=== PATIENT | female | born 1960 | race Caucasian/White ===

== ENCOUNTER → 2018-03-18 | Outpatient (REF) | payer MEDICAID ==
[2018-03-18 17:37] LABS: BASO # 0.1 10^3/uL (0.0-0.2); BASO % 0.9 % (0.0-1.0); EOS # 0.2 10^3/uL (0.0-0.50); EOS % 4.1 % (0.0-3.0); HEMATOCRIT 37.6 % (36.0-47.0); HEMOGLOBIN 12.7 g/dl (12.0-15.5); IMMATURE GRANULOCYTE % 0.2 % (0-3.0); LYMPH # 2.2 10^3/uL (1.5-4.5); LYMPH % 38.6 % (24.0-44.0); MEAN CORPUSCULAR HEMOGLOBIN 29.7 pg (27.0-33.0); MEAN CORPUSCULAR HGB CONC 33.8 g/dl (32.0-36.5); MEAN CORPUSCULAR VOLUME 87.9 fl (80.0-96.0); MONO # 0.3 10^3/uL (0.0-0.8); MONO % 5.9 % (0.0-5.0); NEUTROPHILS # 2.8 10^3/uL (1.8-7.7); NEUTROPHILS % 50.3 % (36.0-66.0); PLATELET COUNT, AUTOMATED 229 10^3/uL (150-450); RED BLOOD COUNT 4.28 10^6/uL (4.00-5.40); RED CELL DISTRIBUTION WIDTH 13.4 % (11.5-14.5); WHITE BLOOD COUNT 5.6 10^3/uL (4.0-10.0)
[2018-03-18 18:37] LABS: ALBUMIN 3.4 GM/DL (3.2-5.2); ALBUMIN/GLOBULIN RATIO 1.13 (1.00-1.93); ALKALINE PHOSPHATASE 69 U/L (45-117); ALT/SGPT 20 U/L (12-78); ANION GAP 6 MEQ/L (8-16); AST/SGOT 11 U/L (7-37); BILIRUBIN,TOTAL 1.3 MG/DL (0.2-1.0); BLOOD UREA NITROGEN 14 MG/DL (7-18); CALCIUM LEVEL 8.7 MG/DL (8.8-10.2); CARBON DIOXIDE LEVEL 28 MEQ/L (21-32); CHLORIDE LEVEL 107 MEQ/L (98-107); CHOLESTEROL LEVEL 184 MG/DL (<200); CHOLESTEROL RISK RATIO 4.279 (<5); CREATININE FOR GFR 0.73 MG/DL (0.55-1.30); GLOMERULAR FILTRATION RATE > 60.0 (>45); GLUCOSE, FASTING 120 MG/DL (70-100); HDL CHOLESTEROL 43 MG/DL (>40); NON-HDL-C 141 MG/DL; POTASSIUM SERUM 4.1 MEQ/L (3.5-5.1); SODIUM LEVEL 141 MEQ/L (136-145); TOTAL PROTEIN 6.4 GM/DL (6.4-8.2); TRIGLYCERIDES LEVEL 255 MG/DL (<150)
[2018-03-18 18:47] LABS: CREATININE, URINE 67.7 MG/DL; MALB URINE SIEMENS < 5.0 MG/L; MAU/CREAT RATIO 7.3 MCG/MG (0.0-30.0)
[2018-03-18 19:09] LABS: ESTIMATED AVERAGE GLUCOSE 111 MG/DL (60-110); HEMOGLOBIN A1c 5.5 %
== END ==
LOC: M SFHCCAPE 06:57
DX: E11.69 Type 2 diabetes mellitus with other specified complication (principal)
CPT/HCPCS: 84443

== ENCOUNTER 2018-04-30 10:17 | Day surgery (SDC) | payer OTHER, MEDICAID ==
[2018-04-30] MEDS: NS 1,000 ML IV (06:00)
[2018-04-30] MEDS ORDERED: PROPOFOL 200 MG/20 ML VIAL As Ordered (11:03)
[2018-04-30] MEDS ORDERED: LIDOCAINE 2% INJ 100 MG/5 ML SDV (FOR ANES.) As Ordered (11:03)
== END 2018-04-30 12:21 | disposition home or self-care (01) ==
LOC: M OPP 10:17
DX: Z12.11 Encounter for screening for malignant neoplasm of colon (principal); D12.7 Benign neoplasm of rectosigmoid junction; D12.2 Benign neoplasm of ascending colon; K57.30 Diverticulosis of large intestine without perforation or abscess without bleeding; Z95.5 Presence of coronary angioplasty implant and graft; I48.91 Unspecified atrial fibrillation; I25.10 Atherosclerotic heart disease of native coronary artery without angina pectoris; I25.2 Old myocardial infarction; I10 Essential (primary) hypertension; E11.9 Type 2 diabetes mellitus without complications; R32 Unspecified urinary incontinence; E66.9 Obesity, unspecified; Z79.82 Long term (current) use of aspirin; Z79.899 Other long term (current) drug therapy; Z79.01 Long term (current) use of anticoagulants; Z79.84 Long term (current) use of oral hypoglycemic drugs
CPT/HCPCS: 45385

== ENCOUNTER → 2018-12-23 | Outpatient (REF) | payer MEDICAID ==
[~2018-12-23] MED LIST: ASPI-222 PO; CART120C PO; D 50CAP PO; DITR5TAB PO; MAGN250T7 PO; METF500T13 PO; METO1TAB33 PO; RANI1TAB6 PO
[2018-12-23 18:01] LABS: BASO # 0.1 10^3/uL (0.0-0.2); BASO % 0.7 % (0.0-1.0); EOS # 0.3 10^3/uL (0.0-0.50); EOS % 3.8 % (0.0-3.0); HEMOGLOBIN 12.3 g/dl (12.0-15.5); LYMPH % 27.7 % (24.0-44.0); MEAN CORPUSCULAR HEMOGLOBIN 29.2 pg (27.0-33.0); MEAN CORPUSCULAR HGB CONC 33.2 g/dl (32.0-36.5); MEAN CORPUSCULAR VOLUME 87.9 fl (80.0-96.0); MONO # 0.7 10^3/uL (0.0-0.8); MONO % 9.6 % (0.0-5.0); NEUTROPHILS # 4.1 10^3/uL (1.8-7.7); NEUTROPHILS % 57.8 % (36.0-66.0); PLATELET COUNT, AUTOMATED 258 10^3/uL (150-450); RED BLOOD COUNT 4.21 10^6/uL (4.00-5.40); WHITE BLOOD COUNT 7.1 10^3/uL (4.0-10.0)
[2018-12-23 18:21] LABS: MAU/CREAT RATIO 9.3 MCG/MG (0.0-30.0)
[2018-12-23 18:22] LABS: ALBUMIN 3.1 GM/DL (3.2-5.2); ALT/SGPT 22 U/L (12-78); BILIRUBIN,TOTAL 1.2 MG/DL (0.2-1.0); BLOOD UREA NITROGEN 7 MG/DL (7-18); CALCIUM LEVEL 8.4 MG/DL (8.8-10.2); CARBON DIOXIDE LEVEL 29 MEQ/L (21-32); CHLORIDE LEVEL 106 MEQ/L (98-107); CHOLESTEROL LEVEL 171 MG/DL (<200); CHOLESTEROL RISK RATIO 5.181 (<5); CREATININE FOR GFR 0.65 MG/DL (0.55-1.30); GLOMERULAR FILTRATION RATE > 60.0 (>45); GLUCOSE, FASTING 137 MG/DL (70-100); HDL CHOLESTEROL 33 MG/DL (>40); LDL CHOLESTEROL 105 MG/DL (<100); NON-HDL-C 138 MG/DL; POTASSIUM SERUM 3.7 MEQ/L (3.5-5.1); SODIUM LEVEL 144 MEQ/L (136-145); TOTAL PROTEIN 6.3 GM/DL (6.4-8.2); TRIGLYCERIDES LEVEL 163 MG/DL (<150)
[2018-12-23 18:26] LABS: HEMOGLOBIN A1c 6.2 %
== END ==
LOC: M SFHCCAPE 07:03
PROVIDERS: ATTEND Physician Assistant
DX: E11.69 Type 2 diabetes mellitus with other specified complication (principal)

== ENCOUNTER → 2019-01-07 | Outpatient (CLI) | payer MEDICAID, SELFPAY ==
--- NOTE | 2019-01-07 13:05 | REP ---
Chest x-ray: Two views. History: Shortness of breath. . Comparison study: No comparison study. . Findings: The lungs are well inflated and free of infiltrate. The pleural angles are sharp. The heart size is at the upper limits of normal. Cardiothoracic ratio on the frontal film is 51.1%. Pulmonary vasculature is not increased. No significant bony abnormality is seen. Impression: Borderline heart size, otherwise negative chest x-ray. Electronically Signed by Mitchel Sunshine MD 01/07/2019 12:56 P
== END ==
LOC: M RAD 09:52
PROVIDERS: ATTEND Family Medicine
DX: R06.02 Shortness of breath (principal); Z12.39 Encounter for other screening for malignant neoplasm of breast

== ENCOUNTER → 2019-03-25 | Outpatient (CLI) | payer OTHER ==
[~2019-03-25] MED LIST changes: -ASPI-222 PO; +ASPI-527 PO; +RANI-356 PO; -RANI1TAB6 PO
--- NOTE | 2019-03-25 08:56 | REPMRS ---
Patient History The patient states she has not had a clinical breast exam in over a year. No known family history of cancer, patient was adopted. Out of state priors scanned into PACs 3D TOMOSYNTHESIS WAS PERFORMED. The Syeda Rothman lifetime risk for breast cancer is 8.1%. Digital Mammo Screening Bilat: March 25, 2019 - Exam #: [id number] Bilateral CC and MLO view(s) were taken. Technologist: Radha Luz, Technologist Prior study comparison: October 21, 2016, bilateral digital mammo screening bilat, performed at [place], [place]. FINDINGS: There are scattered fibroglandular densities. There has been no change in the appearance of the mammogram from the prior studies. There is a mild amount of residual fibroglandular tissue which is fairly symmetric. There is no interval development of dominant mass, architectural distortion, or clustered microcalcification suggestive of malignancy. Assessment: BI-RADS/ACR category 1 mammogram. Negative Mammogram. Recommendation Routine screening mammogram in 1 year (for women over age 40). This mammogram was interpreted with the aid of an FDA-approved computer-aided dectection system. Electronically Signed By: Benito Saez MD 03/25/19 [id number]
== END ==
LOC: M RAD 08:06
PROVIDERS: ATTEND Physician Assistant
DX: Z12.31 Encounter for screening mammogram for malignant neoplasm of breast (principal)

== ENCOUNTER → 2019-04-22 | Outpatient (REF) | payer OTHER ==
[2019-04-22 16:38] LABS: ALBUMIN 3.8 GM/DL (3.2-5.2); ALT/SGPT 29 U/L (12-78); BILIRUBIN,TOTAL 1.9 MG/DL (0.2-1.0); BLOOD UREA NITROGEN 12 MG/DL (7-18); CALCIUM LEVEL 9.2 MG/DL (8.8-10.2); CARBON DIOXIDE LEVEL 29 MEQ/L (21-32); CHLORIDE LEVEL 109 MEQ/L (98-107); CHOLESTEROL LEVEL 121 MG/DL (<200); CREATININE FOR GFR 0.67 MG/DL (0.55-1.30); GLOMERULAR FILTRATION RATE > 60.0 (>45); GLUCOSE, FASTING 134 MG/DL (70-100); HDL CHOLESTEROL 50 MG/DL (>40); LDL CHOLESTEROL 44 MG/DL (<100); NON-HDL-C 71 MG/DL; POTASSIUM SERUM 4.3 MEQ/L (3.5-5.1); SODIUM LEVEL 143 MEQ/L (136-145); TOTAL PROTEIN 6.5 GM/DL (6.4-8.2); TRIGLYCERIDES LEVEL 137 MG/DL (<150)
[2019-04-22 18:07] LABS: HEMOGLOBIN A1c 5.7 %
== END ==
LOC: M SFHCCAPE 07:04
PROVIDERS: ATTEND Physician Assistant
DX: E78.2 Mixed hyperlipidemia (principal); E11.69 Type 2 diabetes mellitus with other specified complication

== ENCOUNTER → 2019-04-26 | Outpatient (REF) | payer OTHER ==
[~2019-04-26] MED LIST changes: -RANI-356 PO; +RANI-397 PO
[2019-04-26 18:31] LABS: ALT/SGPT 39 U/L (12-78); BILIRUBIN,DIRECT 0.4 MG/DL (0.0-0.2); BILIRUBIN,TOTAL 2.3 MG/DL (0.2-1.0); BLOOD UREA NITROGEN 15 MG/DL (7-18); CALCIUM LEVEL 9.2 MG/DL (8.8-10.2); CARBON DIOXIDE LEVEL 27 MEQ/L (21-32); CHLORIDE LEVEL 105 MEQ/L (98-107); CREATININE FOR GFR 0.71 MG/DL (0.55-1.30); GLOMERULAR FILTRATION RATE > 60.0 (>45); GLUCOSE, FASTING 127 MG/DL (70-100); POTASSIUM SERUM 4.9 MEQ/L (3.5-5.1); SODIUM LEVEL 141 MEQ/L (136-145); TOTAL PROTEIN 6.9 GM/DL (6.4-8.2)
== END ==
LOC: M SFHCCAPE 10:29
PROVIDERS: ATTEND Physician Assistant
DX: E80.6 Other disorders of bilirubin metabolism (principal)

== ENCOUNTER → 2020-03-06 | Outpatient (REF) | payer OTHER ==
[2020-05-28 08:37] LABS: ALBUMIN 4.2 GM/DL (3.2-5.2); ALT/SGPT 34 U/L (12-78); BILIRUBIN,DIRECT 0.4 MG/DL (0.0-0.2); BILIRUBIN,TOTAL 1.9 MG/DL (0.2-1.0); BLOOD UREA NITROGEN 14 MG/DL (7-18); CALCIUM LEVEL 9.4 MG/DL (8.8-10.2); CARBON DIOXIDE LEVEL 29 MEQ/L (21-32); CHLORIDE LEVEL 106 MEQ/L (98-107); CREATININE FOR GFR 0.73 MG/DL (0.55-1.30); GLOMERULAR FILTRATION RATE > 60.0 (>45); GLUCOSE, FASTING 86 MG/DL (70-100); SODIUM LEVEL 139 MEQ/L (136-145); TOTAL PROTEIN 7.1 GM/DL (6.4-8.2)
== END ==
LOC: M SFHCCLAY 12:18
PROVIDERS: ATTEND Physician Assistant
DX: E66.09 Other obesity due to excess calories (principal)

== ENCOUNTER → 2020-12-11 | Outpatient (REF) | payer OTHER | LOC: M LAB REF 13:41 | PROVIDERS: ATTEND Physician Assistant | DX: D48.5 Neoplasm of uncertain behavior of skin (principal) ==

== ENCOUNTER → 2021-01-10 | Outpatient (REF) | payer OTHER ==
[2021-01-10 16:47] LABS: HEMOGLOBIN A1c 6.1 %
[2021-01-10 16:50] LABS: BASO # 0.1 10^3/uL (0.0-0.2); BASO % 0.8 % (0.0-1.0); EOS # 0.3 10^3/uL (0.0-0.5); EOS % 4.4 % (0.0-3.0); HEMATOCRIT 40.7 % (36.0-47.0); HEMOGLOBIN 13.3 g/dl (12.0-15.5); LYMPH # 2.7 10^3/uL (1.5-5.0); LYMPH % 36.7 % (24.0-44.0); MEAN CORPUSCULAR HEMOGLOBIN 30.1 pg (27.0-33.0); MEAN CORPUSCULAR HGB CONC 32.7 g/dl (32.0-36.5); MEAN CORPUSCULAR VOLUME 92.1 fl (80.0-96.0); MONO # 0.5 10^3/uL (0.0-0.8); MONO % 6.8 % (2.0-8.0); NEUTROPHILS # 3.7 10^3/uL (1.5-8.5); PLATELET COUNT, AUTOMATED 222 10^3/uL (150-450); RED BLOOD COUNT 4.42 10^6/uL (4.00-5.40); WHITE BLOOD COUNT 7.3 10^3/uL (4.0-10.0)
[2021-01-10 16:59] LABS: ALBUMIN 3.9 GM/DL (3.2-5.2); ALT/SGPT 45 U/L (12-78); BILIRUBIN,DIRECT 0.4 MG/DL (0.0-0.2); BLOOD UREA NITROGEN 12 MG/DL (7-18); CALCIUM LEVEL 9.5 MG/DL (8.8-10.2); CARBON DIOXIDE LEVEL 29 MEQ/L (21-32); CHLORIDE LEVEL 107 MEQ/L (98-107); CHOLESTEROL LEVEL 140 MG/DL (<200); CHOLESTEROL RISK RATIO 3.111 (<5); CREATININE FOR GFR 0.71 MG/DL (0.55-1.30); GLOMERULAR FILTRATION RATE > 60.0 (>45); GLUCOSE, FASTING 137 MG/DL (70-100); HDL CHOLESTEROL 45 MG/DL (>40); LDL CHOLESTEROL 48 MG/DL (<100); NON-HDL-C 95 MG/DL; POTASSIUM SERUM 4.6 MEQ/L (3.5-5.1); SODIUM LEVEL 140 MEQ/L (136-145); TOTAL PROTEIN 6.7 GM/DL (6.4-8.2); TRIGLYCERIDES LEVEL 236 MG/DL (<150)
== END ==
LOC: M SFHCCAPE 07:09
PROVIDERS: ATTEND Physician Assistant
DX: E11.69 Type 2 diabetes mellitus with other specified complication (principal); E80.6 Other disorders of bilirubin metabolism

== ENCOUNTER → 2021-01-16 | Outpatient (REF) | payer OTHER ==
[2021-01-16 16:57] LABS: CREATININE, URINE 94.1 MG/DL; MALB URINE SIEMENS 9.3 MG/L; MAU/CREAT RATIO 9.8 MCG/MG (0.0-30.0)
== END ==
LOC: M SFHCCAPE 15:53
PROVIDERS: ATTEND Physician Assistant
DX: E11.69 Type 2 diabetes mellitus with other specified complication (principal)

== ENCOUNTER → 2021-03-02 | Outpatient (CLI) | payer OTHER ==
--- NOTE | 2021-03-02 11:31 | REPMRS ---
Patient History The patient states she had a clinical breast exam in January 2021. Patient has history of basal cell skin cancer at age 41. No known family history of cancer. Patient states no breast complaints today. Patient has signed MRS History Sheet. Digital Woman Screen Mammo: March 02, 2021 - Exam #: [id number] Bilateral CC and MLO view(s) were taken. Technologist: Leda Deshpande, Technologist Prior study comparison: March 25, 2019, bilateral digital mammo screening bilat, performed at [facility]. October 21, 2016, bilateral digital mammo screening bilat, performed at [place], [place]. March 25, 2014, bilateral digital mammo screening bilat, performed at [place], [place]. FINDINGS: There are scattered fibroglandular densities. The [employer] volumetric breast density category is:B. There has been no change in the appearance of the mammogram from the prior studies. There is a mild amount of scattered fibroglandular density which is fairly symmetric. There is no interval development of dominant mass, architectural distortion, or grouped microcalcification suggestive of malignancy. 3-D tomosynthesis shows no additional findings. Assessment: BI-RADS/ACR category 1 mammogram. Negative Mammogram. Recommendation Routine screening mammogram of both breasts in 1 year (for women over age 40). This patient's [facility] Lifetime Breast Cancer Risk is estimated at 7.5 %. This mammogram was interpreted with the aid of an FDA-approved computer-aided dectection system. Electronically Signed By: Noe Sunshine MD 03/02/21 [id number]
== END ==
LOC: M WHC 10:25
PROVIDERS: ATTEND Physician Assistant
DX: Z12.31 Encounter for screening mammogram for malignant neoplasm of breast (principal); Z85.828 Personal history of other malignant neoplasm of skin

== ENCOUNTER → 2022-02-05 | Outpatient (REF) | payer OTHER ==
[2022-02-05 16:30] LABS: ALBUMIN 3.6 GM/DL (3.2-5.2); ALT/SGPT 36 U/L (12-78); BILIRUBIN,TOTAL 1.8 MG/DL (0.2-1.0); BLOOD UREA NITROGEN 13 MG/DL (7-18); CARBON DIOXIDE LEVEL 26 MEQ/L (21-32); CHLORIDE LEVEL 109 MEQ/L (98-107); CHOLESTEROL LEVEL 130 MG/DL (<200); CHOLESTEROL RISK RATIO 2.765 (<5); CREATININE FOR GFR 0.75 MG/DL (0.55-1.30); GLOMERULAR FILTRATION RATE > 60.0 (>45); GLUCOSE, FASTING 186 MG/DL (70-100); HDL CHOLESTEROL 47 MG/DL (>40); LDL CHOLESTEROL 51 MG/DL (<100); NON-HDL-C 83 MG/DL; POTASSIUM SERUM 4.3 MEQ/L (3.5-5.1); SODIUM LEVEL 140 MEQ/L (136-145); TOTAL PROTEIN 6.5 GM/DL (6.4-8.2); TRIGLYCERIDES LEVEL 161 MG/DL (<150)
[2022-02-05 16:59] LABS: MALB URINE SIEMENS 15.1 MG/L; MAU/CREAT RATIO 10.4 MCG/MG (0.0-30.0)
[2022-02-05 17:07] LABS: HEMOGLOBIN A1c 7.1 %
[2022-02-05 17:19] LABS: TOTAL 25(OH) VITAMIN D 24.2 NG/ML (30.0-100.0); VITAMIN B12 LEVEL 430 PG/ML
[2022-02-05 17:20] LABS: FOLATE 15.1 NG/ML
== END ==
LOC: M SFHCCAPE 08:02
PROVIDERS: ATTEND Physician Assistant
DX: Z00.00 Encounter for general adult medical examination without abnormal findings (principal)

== ENCOUNTER → 2022-02-15 | Outpatient (CLI) | payer OTHER | LOC: M CARPUL 09:54 | PROVIDERS: ATTEND Physician Assistant | DX: I25.10 Atherosclerotic heart disease of native coronary artery without angina pectoris (principal) ==

== ENCOUNTER → 2022-03-01 | Outpatient (CLI) | payer OTHER | LOC: M WHC 12:20 | PROVIDERS: ATTEND Physician Assistant | DX: N64.4 Mastodynia (principal) ==

== ENCOUNTER → 2023-03-28 | Outpatient (CLI) | payer OTHER ==
[2023-03-28 12:16] LABS: ALBUMIN 3.9 G/DL (3.2-5.2); ALKALINE PHOSPHATASE 99 U/L (46-116); ALT/SGPT 46 U/L (7.0-40); AST/SGOT 16 U/L (<34); BILIRUBIN,TOTAL 1.8 MG/DL (0.3-1.2); BLOOD UREA NITROGEN 14 MG/DL (9-23); CALCIUM LEVEL 9.1 MG/DL (8.3-10.6); CARBON DIOXIDE LEVEL 29 MMOL/L (20-31); CHLORIDE LEVEL 106 MMOL/L (98-107); CHOLESTEROL LEVEL 145 MG/DL (<200); CHOLESTEROL RISK RATIO 2.92 (<5); CREATININE FOR GFR 0.59 MG/DL (0.55-1.30); GLOMERULAR FILTRATION RATE > 60.0 (>45); GLUCOSE, FASTING 164 MG/DL (74-106); HDL CHOLESTEROL 49.6 MG/DL (>40); LDL CHOLESTEROL 68.2 MG/DL (<100); NON-HDL-C 95.4 MG/DL; POTASSIUM SERUM 4.3 MMOL/L (3.5-5.1); SODIUM LEVEL 139 MMOL/L (136-145); TOTAL PROTEIN 6.9 G/DL (5.7-8.2); TRIGLYCERIDES LEVEL 136 MG/DL (<150)
[2023-03-28 12:19] LABS: TOTAL 25(OH) VITAMIN D 28.4 NG/ML (20.0-100.0)
[2023-03-28 12:35] LABS: HEMOGLOBIN A1c 7.1 % (4.0-6.0)
== END ==
LOC: M LAB 10:15
PROVIDERS: ATTEND Physician Assistant
DX: E11.69 Type 2 diabetes mellitus with other specified complication (principal); E78.2 Mixed hyperlipidemia; Z79.899 Other long term (current) drug therapy

== ENCOUNTER 2025-03-21 16:55 | Emergency (ER) | payer MEDICARE ==
[~2025-03-21 16:55] MED LIST changes: +ASPI81TA26 PO; +ATOR40TA75 PO; +CARD40TA PO; +DIGO0.123 PO; +DILT60CASR PO; +ESTR0.1C5 VG; +GLIM1TAB84 PO; +HYDR-3490 PO; +KETO2CR TOP; +METO1TAB87 PO; +MIDO10TA3 PO; +MYRB50TA PO; +OMEP-173 PO; +RAMI10CA64 PO; +TALK1KIT MC; +TIRZ10PE SUBQ; +XARE20TA PO
[2025-03-21 17:28] LABS: BASO # 0.1 10^3/uL (0.0-0.2); BASO % 0.8 % (0.0-1.0); EOS # 0.2 10^3/uL (0.0-0.5); EOS % 2.3 % (0.0-3.0); LYMPH # 2.5 10^3/uL (1.5-5.0); LYMPH % 27.3 % (24.0-44.0); MONO # 0.6 10^3/uL (0.0-0.8); MONO % 6.9 % (2.0-8.0); NEUTROPHILS # 5.7 10^3/uL (1.5-8.5); NEUTROPHILS % 62.5 % (36.0-66.0); PLATELET COUNT, AUTOMATED 278 10^3/uL (150-450)
[2025-03-21 18:01] LABS: CK-MB VALUE MASS 1.3 NG/ML (<3.6)
[2025-03-21 18:03] LABS: CALCIUM LEVEL 9.1 MG/DL (8.3-10.6); CARBON DIOXIDE LEVEL 28 MMOL/L (20-31); CHLORIDE LEVEL 108 MMOL/L (98-107); CREATININE FOR GFR 0.73 MG/DL (0.55-1.30); GLOMERULAR FILTRATION RATE > 90.0 (>45); POTASSIUM SERUM 3.8 MMOL/L (3.5-5.1); SODIUM LEVEL 146 MMOL/L (136-145)
[2025-03-21 18:04] LABS: CPK CREATINE PHOSPHOKINASE 38 U/L (34-145); MB/CK RELATIVE INDEX 3.42 (< OR =4)
[2025-03-21] MEDS ORDERED: ISOVUE-370 76% 100 ML VIAL As Ordered ONE (18:16)
[2025-03-21] MEDS: NS 500 ML IV ONE (18:43)
[2025-03-21] MEDS: MIDODRINE 5 MG TAB PO ONE (18:44)
[2025-03-21 18:53] LABS: CK-MB VALUE MASS 1.4 NG/ML (<3.6)
[2025-03-21 18:54] LABS: CPK CREATINE PHOSPHOKINASE 31.0 U/L (34-145); DIGOXIN LEVEL 1.0 NG/ML (0.8-2.0); MB/CK RELATIVE INDEX 4.51 (< OR =4)
[2025-03-21] MEDS: ASPIRIN 81 MG CHEWABLE TABLET PO ONE (19:23)
[2025-03-21 20:58] LABS: CK-MB VALUE MASS 1.0 NG/ML (<3.6)
[2025-03-21 21:00] LABS: CPK CREATINE PHOSPHOKINASE 32.0 U/L (34-145); MB/CK RELATIVE INDEX 3.12 (< OR =4)
[2025-03-21 21:45] VITALS: BP 124/73; TEMP 97.9; O2SAT 96
== END 2025-03-21 21:50 | disposition home or self-care (01) ==
LOC: M ED 16:55
DX: R07.9 Chest pain, unspecified (principal); I49.1 Atrial premature depolarization; E11.9 Type 2 diabetes mellitus without complications; E78.5 Hyperlipidemia, unspecified; K21.9 Gastro-esophageal reflux disease without esophagitis; I25.2 Old myocardial infarction; F10.10 Alcohol abuse, uncomplicated; Z86.79 Personal history of other diseases of the circulatory system; Z79.82 Long term (current) use of aspirin; Z79.02 Long term (current) use of antithrombotics/antiplatelets; Z79.899 Other long term (current) drug therapy
CPT/HCPCS: 71045; 71275; 80047; 80048; 80162; 82550; 82553; 84484; 85025; 93005; 93041; 94760; 96360; 96361; 99285; Q9967